=== PATIENT | female | born 2000 | race African-American/Black ===

== ENCOUNTER 2020-05-03 13:04 | Emergency (ER) | payer MEDICAID ==
[~2020-05-03] VITALS: Ht 167.6 cm; Wt 101.0 kg
[2020-05-03 13:24] VITALS: BP 136/72
== END 2020-05-03 15:03 | disposition home or self-care (01) ==
LOC: ER 13:04
DX: H10.89 Other conjunctivitis (principal)
CPT/HCPCS: 99281